=== PATIENT | female | born 2000 | race Caucasian/White ===

== ENCOUNTER 2021-05-08 08:37 | Emergency (ER) | payer OTHER ==
[2021-05-08 08:44] VITALS: BP 132/89; PULSE 81; TEMP 98.4; BMI 23.9
[2021-05-08] MEDS ORDERED: METOCLOPRAMIDE HCL INJECTION 10 MG/2 ML VIAL IVPB ONE (10:17)
[2021-05-08] MEDS ORDERED: ACETAMINOPHEN 1000 MG/100 ML BAG IVPB ONE (10:17)
[2021-05-08] MEDS ORDERED: SODIUM CHLORIDE 0.9% 500 ML INFUS.BAG IV ONE (10:17)
[2021-05-08] MEDS ORDERED: METOCLOPRAMIDE HCL INJECTION 10 MG/2 ML VIAL ONE (10:26)
[2021-05-08] MEDS ORDERED: ACETAMINOPHEN INJECTION 100 ML IVPB ONE (10:26)
[2021-05-08 11:10] LABS: EPI CELLS 14 /uL (0-25.1); HYALINE CASTS 1 /uL (0-3.1); URINE APPEARANCE CLEAR; URINE BACTERIA 197 /uL (0-1359); URINE BILIRUBIN NEGATIVE (NEGATIVE); URINE COLOR YELLOW; URINE GLUCOSE (UA) NEGATIVE (NEGATIVE); URINE KETONE NEGATIVE (NEGATIVE); URINE LEUK ESTERASE TRACE (NEGATIVE); URINE NITRITE NEGATIVE (NEGATIVE); URINE PROTEIN NEGATIVE (NEGATIVE); URINE RBC 5 /uL (0-23.9); URINE UROBILINOGEN 0.2 mg/dL (0.2-1.0); URINE WBC 20 /uL (0-25.8)
[2021-05-08 11:11] LABS: BASO % 0.6 % (0-2.0); EOS % 0.2 % (0-4.5); HEMATOCRIT 43.1 % (32.4-45.2); HEMOGLOBIN 14.8 GM/dL (10.7-15.3); MCH 31.8 pg (25.7-33.7); MCHC 34.3 g/dl (32.0-36.0); MEAN CELL VOLUME 92.8 fl (80-96); MONO % 6.2 % (3.8-10.2); PLATELET COUNT 215 10^3/uL (134-434); RBC 4.64 M/mm3 (3.60-5.2); RDW 12.6 % (11.6-15.6); WHITE BLOOD COUNT 6.3 K/mm3 (4.0-10.0)
[2021-05-08 11:27] LABS: ALBUMIN 4.4 g/dl (3.4-5.0); CALCIUM 9.4 mg/dL (8.5-10.1)
[2021-05-08 11:31] LABS: CREATININE 0.7 mg/dL (0.55-1.3)
[2021-05-08 11:32] LABS: BILIRUBIN,TOTAL 0.6 mg/dL (0.2-1); TOT PROT 7.8 g/dl (6.4-8.2)
== END 2021-05-08 13:10 | disposition home or self-care (01) ==
LOC: JER 08:37
PROC: 3E0333Z Introduction of Anti-inflammatory into Peripheral Vein, Percutaneous Approach (ICD-10-PCS; principal; 2021-05-08)
PROC: 3E033GC Introduction of Other Therapeutic Substance into Peripheral Vein, Percutaneous Approach (ICD-10-PCS; 2021-05-08)
DX: R51.9 Headache, unspecified (principal)
CPT/HCPCS: 36415; 70450-TC; 80053; 81003; 84703; 85025; 87086; 99284-25

== ENCOUNTER → 2022-05-14 | Emergency (ER) | payer OTHER ==
[2022-05-14 09:56] VITALS: PULSE 76; RESP 18; TEMP 98.8
[2022-05-14 11:24] VITALS: BP 120/70; BMI 29.1
== END | disposition home or self-care (01) ==
LOC: JER 09:49
DX: M54.50 Low back pain, unspecified (principal)
CPT/HCPCS: 99282-25

== ENCOUNTER 2023-10-22 09:54 | Emergency (ER) | payer OTHER ==
[2023-10-22 10:05] VITALS: BP 117/82; PULSE 81; RESP 18; TEMP 98.6; BMI 23.3
== END 2023-10-22 13:49 | disposition home or self-care (01) ==
LOC: JERFT 09:54
DX: S66.912A Strain of unspecified muscle, fascia and tendon at wrist and hand level, left hand, initial encounter (principal); W10.8XXA Fall (on) (from) other stairs and steps, initial encounter
CPT/HCPCS: 73110-TC-LT-FY; 99283-25